=== PATIENT | male | born 1965 | race Caucasian/White ===

== ENCOUNTER 2017-08-25 22:03 | Emergency (ER) | payer BC, OTHER ==
[2017-08-25 22:15] VITALS: BP 135/83
[2017-08-25] MEDS ORDERED: HYDROmorphone 0.5 MG/0.5 ML SYRINGE IVPUSH ONE (22:34)
[2017-08-25] MEDS ORDERED: Metoclopramide 10 MG/2 ML SDV IVPUSH ONE (22:35)
--- NOTE | 2017-08-25 22:42 | EDM.PDOC ---
ED HPI GENERAL MEDICAL PROBLEM - General Chief Complaint: Genitourinary Problem Stated Complaint: BLOOD IN URINE Time Seen by Provider: 08/25/17 22:25 Source of Information: Reports: Patient, Family (Significant other) History Limitations: Reports: No Limitations - History of Present Illness INITIAL COMMENTS - FREE TEXT/NARRATIVE: 52-year-old male presents the ED due to severe gross hematuria and left flank pain. Patient had a stent placed. Urine has been grossly bloody ever since the procedure but worse today. It also newman quite badly to pass his urine suggesting that the cystoscopy may take longer than. Patient isn't aware of how much stones were removed or whether there was quite a bit of residual stone in place. Pain is currently 9 out of 10. Associated nausea. His concern of course is the amount of gross hematuria. He is on antibiotic therapy since last Wednesday when he presented to the ED in [place] with kidney stone. Onset: Sudden (Noted yesterday after lithotripsy procedure) Onset Date: 08/24/17 Duration: Hour(s): Location: Reports: Abdomen (Left flank pain left abdominal pain), Back Quality: Reports: Ache, Pressure, Other Severity: Moderate (Intermittent colicky type pain) Improves with: Reports: None Worsens with: Reports: None Context: Reports: Other (Recent lithotripsy procedure done yesterday in [place]. Apparently stent remains in place.). Denies: Activity, Exercise, Lifting, Sick Contact, Trauma Associated Symptoms: Reports: Loss of Appetite, Malaise, Nausea/Vomiting ( Nausea without vomiting), Weakness Treatments OUTPATIENT SCHEDULER: Reports: Other (see below) (Pain medicine as needed.) Pelvic Pain Score (Numeric/FACES): 10 - Related Data Allergies Allergy/AdvReac Type Severity Reaction Status Date / Time tapentadol [From Nucynta] Allergy Itching Verified 08/25/17 22:16 Home Meds: Home Meds Gabapentin [Neurontin] 800 mg PO TID 05/20/16 [History] Meloxicam 15 mg PO DAILY 05/20/16 [History] Topiramate 150 mg PO BID 05/20/16 [History] traZODone HCl [Trazodone HCl] 100 mg PO BEDTIME 05/20/16 [History] Escitalopram [Lexapro] 100 mg PO DAILY 08/21/17 [History] Tamsulosin HCl [Flomax] 0.4 mg PO DAILY 08/25/17 [History] Nitrofurantoin Monohyd/M-Cryst [Macrobid 100 mg Capsule] 100 mg PO BID #20 capsule 08/26/17 [Rx] oxyCODONE HCl/Acetaminophen [Percocet 5-325 mg Tablet] 1 - 2 each PO Q4H PRN # 20 tablet 08/26/17 [Rx] Past Medical History HEENT History: Reports: None Cardiovascular History: Reports: None Respiratory History: Reports: None Gastrointestinal History: Reports: Hepatitis Other Gastrointestinal History: hx of hepatitis C, states has been treated Genitourinary History: Reports: Renal Calculus, Other (See Below) Other Genitourinary History: hx prostatitis Musculoskeletal History: Reports: Back Pain, Chronic Other Musculoskeletal History: degenerative joint disease Neurological History: Reports: Migraines Psychiatric History: Reports: None Endocrine/Metabolic History: Reports: None Hematologic History: Reports: None Immunologic History: Reports: None Oncologic (Cancer) History: Reports: None Dermatologic History: Reports: None - Infectious Disease History Infectious Disease History: Reports: Hepatitis C - Past Surgical History Head Surgeries/Procedures: Reports: None Male Surgical History: Reports: Kidney Stone Extraction Neurological Surgical History: Reports: C-Spine, Lumbar Spine Musculoskeletal Surgical History: Reports: Carpal Tunnel Social & Family History - Family History Family Medical History: Noncontributory - Caffeine Use Caffeine Use: Reports: None - Recreational Drug Use Recreational Drug Use: No - Living Situation & Occupation Living situation: Reports: Occupation: Unemployed ED ROS GENERAL - Review of Systems Review Of Systems: See Below Constitutional: Reports: Malaise, Weakness, Fatigue. Denies: Fever, Chills, Weight Loss HEENT: Reports: No Symptoms Respiratory: Reports: No Symptoms Cardiovascular: Reports: No Symptoms Endocrine: Reports: No Symptoms GI/Abdominal: Reports: Abdominal Pain, Decreased Appetite (Left upper quadrant of the abdomen and left flank.), Nausea : Reports: Dysuria (Some dysuria with urgency and burning with voiding. Likely due to cystoscopy.), Frequency ( Gross hematuria since having the procedure done yesterday.), Other (Due to the pain.) Musculoskeletal: Reports: Back Pain (Left flank pain.) Skin: Reports: No Symptoms Neurological: Reports: No Symptoms Psychiatric: Reports: No Symptoms Hematologic/Lymphatic: Reports: No Symptoms Immunologic: Reports: No Symptoms ED EXAM, GI/ABD - Physical Exam Exam: See Below Exam Limited By: No Limitations General Appearance: Alert, WD/WN, Moderate Distress Respiratory/Chest: No Respiratory Distress, Lungs Clear, Normal Breath Sounds, Chest Non-Tender Cardiovascular: Normal Peripheral Pulses, Regular Rate, Rhythm, No Edema, No Murmur GI/Abdominal Exam: Normal Bowel Sounds, Soft, No Organomegaly, No Abnormal Bruit , No Mass, Pelvis Stable, Tender Back Exam: CVA Tenderness (L). No: CVA Tenderness (R) Extremities: Normal Inspection, Normal Range of Motion, Non-Tender, No Pedal Edema Neurological: Oriented, CN II-XII Intact, Normal Cognition Psychiatric: Anxious (Mildly anxious) Skin Exam: Warm, Dry, Intact, Normal Color, No Rash Course - Vital Signs Last Recorded V/S: Last Vital Signs Temp 36.8 C 08/25/17 22:09 Pulse 62 08/25/17 22:09 Resp 20 08/25/17 22:09 BP 135/83 08/25/17 22:09 Pulse Ox 100 08/25/17 22:09 - Orders/Labs/Meds Orders: Active Orders 24 hr Category Date Time Status Abdomen 1V Flat [CR] Stat Exams 08/25/17 22:34 Taken CULTURE URINE [RM] Stat Lab 08/25/17 22:25 Received URINALYSIS W/MICROSCOPIC [UA W/MICROSCOPIC] [URIN] Stat Lab 08/25/17 22:33 Ordered Labs: Laboratory Tests 08/25/17 08/25/17 08/25/17 Range/Units 22:31 22:31 22:31 WBC 10.64 H (4.23-9.07) K/mm3 RBC 4.21 L (4.63-6.08) M/mm3 Hgb 11.8 L (13.7-17.5) gm/L Hct 35.7 L (40.1-51.0) % MCV 84.8 (79.0-92.2) fl MCH 28.0 (25.7-32.2) pg MCHC 33.1 (32.2-35.5) g/dl RDW Std Deviation 38.3 (35.1-43.9) fL Plt Count 247 (163-337) K/mm3 MPV 9.7 (9.4-12.3) fl Neutrophils % (Manual) 60 (40-60) % Band Neutrophils % 0 (0-10) % Lymphocytes % (Manual) 28 (20-40) % Atypical Lymphs % 0 % Monocytes % (Manual) 10 (2-10) % Eosinophils % (Manual) 2 (0.8-7.0) % Basophils % (Manual) 0 L (0.2-1.2) Platelet Estimate Adequate Plt Morphology Comment Normal RBC Morph Comment Normal PT 10.5 (9.5-12.1) SECONDS INR 0.96 APTT 28 (24-31) SECONDS Sodium 143 (136-145) mEq/L Potassium 3.7 (3.5-5.1) mEq/L Chloride 109 H (98-107) mEq/L Carbon Dioxide 24 (21-32) mEq/L Anion Gap 13.7 (5-15) BUN 32 H (7-18) mg/dL Creatinine 1.3 (0.7-1.3) mg/dL Est Cr Clr Drug Dosing 67.23 mL/min Estimated GFR (MDRD) 58 (>60) mL/min BUN/Creatinine Ratio 24.6 H (14-18) Glucose 122 H (74-106) mg/dL Calcium 8.5 (8.5-10.1) mg/dL Total Bilirubin 0.1 L (0.2-1.0) mg/dL AST 13 L (15-37) U/L ALT 19 (16-63) U/L Alkaline Phosphatase 40 L (46-116) U/L Total Protein 6.2 L (6.4-8.2) g/dl Albumin 3.0 L (3.4-5.0) g/dl Globulin 3.2 gm/dL Albumin/Globulin Ratio 0.9 L (1-2) Urine Color (Yellow) Urine Appearance (Clear) Urine pH (5.0-8.0) Ur Specific [place] (1.005-1.030) Urine Protein (Negative) Urine Glucose (UA) (Negative) Urine Ketones (Negative) Urine Occult Blood (Negative) Urine Nitrite (Negative) Urine Bilirubin (Negative) Urine Urobilinogen (0.2-1.0) Ur Leukocyte Esterase (Negative) Urine RBC (0-5) /hpf Urine WBC (0-5) /hpf Ur Epithelial Cells (0-5) /hpf Urine Bacteria (FEW) /hpf Urine Mucus (FEW) /hpf 08/25/17 Range/Units 22:33 WBC (4.23-9.07) K/mm3 RBC (4.63-6.08) M/mm3 Hgb (13.7-17.5) gm/L Hct (40.1-51.0) % MCV (79.0-92.2) fl MCH (25.7-32.2) pg MCHC (32.2-35.5) g/dl RDW Std Deviation (35.1-43.9) fL Plt Count (163-337) K/mm3 MPV (9.4-12.3) fl Neutrophils % (Manual) (40-60) % Band Neutrophils % (0-10) % Lymphocytes % (Manual) (20-40) % Atypical Lymphs % % Monocytes % (Manual) (2-10) % Eosinophils % (Manual) (0.8-7.0) % Basophils % (Manual) (0.2-1.2) Platelet Estimate Plt Morphology Comment RBC Morph Comment PT (9.5-12.1) SECONDS INR APTT (24-31) SECONDS Sodium (136-145) mEq/L Potassium (3.5-5.1) mEq/L Chloride (98-107) mEq/L Carbon Dioxide (21-32) mEq/L Anion Gap (5-15) BUN (7-18) mg/dL Creatinine (0.7-1.3) mg/dL Est Cr Clr Drug Dosing mL/min Estimated GFR (MDRD) (>60) mL/min BUN/Creatinine Ratio (14-18) Glucose (74-106) mg/dL Calcium (8.5-10.1) mg/dL Total Bilirubin (0.2-1.0) mg/dL AST (15-37) U/L ALT (16-63) U/L Alkaline Phosphatase (46-116) U/L Total Protein (6.4-8.2) g/dl Albumin (3.4-5.0) g/dl Globulin gm/dL Albumin/Globulin Ratio (1-2) Urine Color Red H (Yellow) Urine Appearance Turbid H (Clear) Urine pH 5.5 (5.0-8.0) Ur Specific [place] 1.025 (1.005-1.030) Urine Protein 3+ H (Negative) Urine Glucose (UA) Negative (Negative) Urine Ketones 1+ H (Negative) Urine Occult Blood 3+ H (Negative) Urine Nitrite Positive H (Negative) Urine Bilirubin 2+ H (Negative) Urine Urobilinogen 2.0 H (0.2-1.0) Ur Leukocyte Esterase 3+ H (Negative) Urine RBC Too numerous to cnt H (0-5) /hpf Urine WBC 0-5 (0-5) /hpf Ur Epithelial Cells Not seen (0-5) /hpf Urine Bacteria Moderate H (FEW) /hpf Urine Mucus Not seen (FEW) /hpf Meds: Medications Discontinued Medications Generic Name Dose Route Start Last Admin Trade Name Freq PRN Reason Stop Dose Admin Hydromorphone HCl 1 mg 08/25/17 22:34 08/25/17 22:42 Dilaudid IVPUSH 08/25/17 22:35 1 mg ONETIME ONE Administration Sodium Chloride 1,000 mls @ 999 mls/hr 08/25/17 22:45 08/25/17 22:41 Normal Saline IV 999 mls/hr ASDIRECTED NISH Administration Ceftriaxone Sodium 1 gm/ 100 mls @ 200 mls/hr 08/25/17 23:38 08/25/17 23:45 Sodium Chloride IV 08/26/17 00:07 200 mls/hr ONETIME ONE Administration Metoclopramide HCl 10 mg 08/25/17 22:35 08/25/17 22:41 Reglan IVPUSH 08/25/17 22:36 10 mg ONETIME ONE Administration - Radiology Interpretation Free Text/Narrative:: 52-year-old male presents the ED one day post lithotripsy. Patient has gross hematuria with dysuria urgency and frequency since the procedure was carried out. He has been on antibiotics since presentation to [facility] last August 21 with a kidney stone. He still is on antibiotic therapy. The urine is grossly hematuric. He does have a stent remaining in place causing pain at this time. His Major concern is the gross hematuria. Is likely due to the procedure itself. He is on meloxicam which may make it bleed a little bit more than normal. He is not on any blood thinners. He does have left flank discomfort. Benign abdominal examination. Plan urinalysis. KUB to be done to make sure that the stent has not migrated. IV normal saline at open. Routine labs to include hemoglobin and hematocrit. Also PT and PTT. Given Dilaudid 1 mg IV and Reglan 10 mg IV for nausea and pain relief. - Re-Assessments/Exams Free Text/Narrative Re-Assessment/Exam: 08/25/17 23:35 Pig tail stent is seen in the left kidney and is in the appropriate position. Bleeding is probably from stent irritation of either the bladder or the pelvis of the kidney itself. 08/25/17 23:37 White count is 10.64 with 60% neutrophils and no bands. Hemoglobin is a little low 11.8 with hematocrit of 35.7. PT is 10.5 with an INR of 0.96 PTT is 28. Sodium is 143 with a potassium of 3.7. Chloride 109 with a bicarbonate of 24. And a gap is normal at 13.7. BUNs slightly elevated at 32. Creatinine is 1.3. Glucose is 122 with a calcium of 8.5. Liver function normal. Total protein 6.2 with an albumin fraction slightly low at 3.0. Urinalysis shows coarse red with 3+ protein 1+ ketones 3+ occult blood positive nitrates 2 + bilirubin 3+ leukocyte esterase and too numerous to count RBCs. Suggest there may be an infective component to his current illness. Urine culture will be ordered. 08/26/17 00:29 We found out that the medication he was prescribed was Cipro on August 21 in [place] when he presented with original kidney stone and renal colic. Therefore it's unusual that there would be such a highly resistant organism to this medication. I will switch him to Macrobid 100 mg twice daily for the next 10 days. He was given a 1 g dose of Rocephin while in the ED.. Cipro will be stopped of course. He was advised that there is a significant amount of stool retention throughout his colon . He needs to get on MiraLAX powder 17 g or 1 scoop daily to prevent severe constipation from occurring. Advised follow-up if he still having gross hematuria 36 hours from now. Departure - Departure Time of Disposition: 00:30 Disposition: Home, Self-Care 01 Condition: Fair Clinical Impression: Gross hematuria, Status post laser lithotripsy of ureteral calculus Urinary tract infection Qualifiers: Urinary tract infection type: site unspecified Hematuria presence: with hematuria Qualified Code(s): N39.0 - Urinary tract infection, site not specified - Discharge Information Prescriptions: Nitrofurantoin Monohyd/M-Cryst [Macrobid 100 mg Capsule] 100 mg PO BID #20 capsule oxyCODONE HCl/Acetaminophen [Percocet 5-325 mg Tablet] 1 - 2 each PO Q4H PRN # 20 tablet PRN Reason: pain relief. Instructions: Urinary Tract Infection, Adult Referrals: PCP,Not In Area [Primary Care Provider] - Forms: ED Department Discharge Additional Instructions: Evaluation the emergency room today in regards to development of gross hematuria which means cranberry juice looking urine. This is post lithotripsy procedure yesterday in [place]. X-ray of the abdomen shows the stent to be in adequate position. The stent could be rubbing against the tissues causing some bleeding and current medication meloxicam would make you bleeding a little bit more than normal. It may be worthwhile placing the meloxicam on hold for the next 3 days. Allises of course is loaded up with red blood cells but also showed significant white blood cells in spite of being on antibiotic medication Cipro for the last 3 days. Suggest that there is a resistant organism to Cipro. Suggest this medication be stopped. You received a dose of antibiotic Rocephin intravenously while in the ED to try and speed up and of urinary tract infection. No antibiotic will be Macrobid 100 mg twice daily for the next 10 days to clear up infection completely. Therefore you should notice improvement in the blood in the urine over the next 24 hours. It should start to clear fairly rapidly. If it does not then follow-up is indicated. Also I noted increased stool throughout the entire colon on your x-ray of your abdomen. Suggest starting MiraLAX powder 17 g or 1 scoop daily to prevent significant constipation occurring from pain medication and recent lithotripsy procedure. Percocet tabs 5/3/25 milligram tablet 1-2 every 4-6 hours needed for pain relief was provided as well. You get to decide when you need this medication for pain relief from the stent. Follow-up with urologist as planned otherwise - My Orders Last 24 Hours: My Active Orders 08/25/17 22:25 CULTURE URINE [RM] Stat 08/25/17 22:33 URINALYSIS W/MICROSCOPIC [UA W/MICROSCOPIC] [URIN] Stat 08/25/17 22:34 Abdomen 1V Flat [CR] Stat - Assessment/Plan Last 24 Hours: My Active Orders 08/25/17 22:25 CULTURE URINE [RM] Stat 08/25/17 22:33 URINALYSIS W/MICROSCOPIC [UA W/MICROSCOPIC] [URIN] Stat 08/25/17 22:34 Abdomen 1V Flat [CR] Stat
[2017-08-25] MEDS ORDERED: Sodium Chloride 0.9% 1,000 ML IV SCH (22:45)
[2017-08-25] MEDS ORDERED: cefTRIAXone 1 GM in Sodium Chloride 0.9% 100 ML IV ONE (23:38)
--- NOTE | 2017-08-26 07:03 | CR ---
Abdomen: Supine view of the abdomen was obtained. Comparison: No previous abdominal x-ray. Left ureteral stent is seen. Proximal end lies within the region of the upper pole left renal calyx and lower end lies in the region of the bladder. No abnormal calcifications are seen along the course of the stent. Slight increased stool is noted within the colon. Previous lumbar spine surgery is noted. Calcifications are seen within the pelvis which are compatible with phleboliths. Impression: 1. Left ureteral stent. No abnormal calcifications are seen along the stent. 2. Other incidental findings. Diagnostic code #2
== END 2017-08-26 00:46 | disposition home or self-care (01) ==
LOC: JD.ED 22:03
DX: N39.0 Urinary tract infection, site not specified (principal); Z88.8 Allergy status to other drugs, medicaments and biological substances; Z79.899 Other long term (current) drug therapy; Z98.890 Other specified postprocedural states; Z87.442 Personal history of urinary calculi
CPT/HCPCS: 36415; 74018; 80053; 81001; 85007; 85027; 85610; 85730; 87086; 96361; 96365; 96375; 99284; J0696; J1170; J2765; J7030; J7040